=== PATIENT | female | born 2005 | race Caucasian/White ===

== ENCOUNTER 2024-11-28 13:01 | Emergency (ER) | payer OTHER, SELFPAY ==
[2024-11-28] VITALS (10 sets, daily range): BP systolic 109–124; BP diastolic 59–65; PULSE 70–99; RESP 18; TEMP 36.5–36.8; O2SAT 99–100; BMI 18.8
[2024-11-28] MEDS: ONDANSETRON 4 MG/2 ML INJ IV (13:26)
[2024-11-28 13:43] LABS: Amorphous Sediment Urine 1+; Bacteria Urine None Seen; Culture Indicated Urine Cult Not Indicated; RBC Urine 1-5/HPF (0-5/HPF); Squamous Epithelial Cell Urine 1-5 /HPF (0-5/HPF); Urine Volume 10mL (spun); WBC Urine 0-1/HPF (0-5/HPF)
[2024-11-28 13:53] LABS: Add Manual Diff / Slide Review NO; Basophils Absolute Auto 100 /uL (0-100); Basophils Percent Auto 0.5 % (0-2); Eosinophils Absolute Auto 100 /uL (0-450); Eosinophils Percent Auto 0.3 % (2-4); Hematocrit 39.6 % (36-46); Hemoglobin 13.4 g/dL (12.0-16.0); Lymphocytes Absolute Auto 2200 /uL (1100-4500); Lymphocytes Percent Auto 10.2 % (25-40); Mean Corpuscular HGB Conc 33.9 % (30-36); Mean Corpuscular Hemoglobin 28.6 PG (26-34); Mean Corpuscular Volume 84.5 fL (80-100); Monocytes Absolute Auto 1000 /uL (0-900); Monocytes Percent Auto 4.4 % (3-14); Neutrophils Absolute Auto 18500 /uL (1500-7000); Neutrophils Percent Auto 84.6 % (50-75); Platelet Count 387 X10^3/uL (150-400); Red Blood Cell Count 4.68 X10^6/uL (4.0-5.2); Red Cell Distribution Width 13.3 % (11.6-14.8); White Blood Cell Count 21.8 X10^3/uL (4.5-11.0)
[2024-11-28 14:00] LABS: Alanine Aminotransferase 17 IU/L (<35); Albumin 4.6 g/dL (3.5-5.0); Albumin Globulin Ratio 1.7 (1.0-2.8); Alkaline Phosphatase 75 U/L (38-126); Aspartate Aminotransferase 26 IU/L (14-36); BUN Creatinine Ratio 17.3 (6-22); Bilirubin Total 0.4 mg/dL (0.2-1.3); Blood Urea Nitrogen 17 mg/dL (7-17); Calcium 9.8 mg/dL (8.4-10.2); Carbon Dioxide 24 mmol/L (22-32); Chloride 103 mmol/L (98-107); Estimated Glomerular Filt Rate > 60 mL/min (>60); Globulin 2.7 g/dL (1.7-4.1); Glucose 127 mg/dL (70-99); HEMOLYSIS < 15 (0-50); Lipase 69 U/L (23-300); Potassium 3.7 mmol/L (3.4-5.1); Sodium 138 mmol/L (137-145); Total Protein 7.3 g/dL (6.3-8.2)
--- NOTE | 2024-11-28 14:25 | ED_ITS ---
HPI - Abdominal Pain General Chief Complaint: Abdominal Pain Stated Complaint: back+ abd pain, n/v and chills Time Seen by Provider: 11/28/24 14:08 Source: patient and family Mode of arrival: Ambulatory History of Present Illness HPI narrative: Patient here with mom and dad for complaints of nausea vomiting right side pain that started this morning. No known sick contacts. No urinary complaints. No prior abdominal surgical history. Related Data Previous Rx's ?Medication ?Instructions ?Recorded hydrocodone 5 mg-acetaminophen 325 1 tab PO Q6H PRN pa in #20 tabs 11/28/24 mg tablet ibuprofen 600 mg tablet 600 mg PO Q6H PRN fever or p ain 11/28/24 #24 tabs ondansetron 4 mg disintegrating 4 mg PO Q6H PRN nausea and 11/28/24 tablet vomiting #20 tabs tamsulosin 0.4 mg capsule 0.4 mg PO DAILY #7 caps 11/02 02/25 Allergies Allergy/AdvReac Type Severity Reaction Status Date / Time No Known Drug Allergies Allergy Verified 11/28/24 13:04 Review of Systems Review of Systems Narrative: GENERAL: Negative chills, fatigue, malaise, fever, sweats. HEENT: Negative sinus pain, ear pain, sore throat RESPIRATORY: Negative dyspnea, cough CARDIOVASCULAR: Negative chest pain, palpitations GASTROINTESTINAL: Positivevomiting, nausea, abdominal pain : Negative dysuria, frequency, hematuria MUSCULOSKELETAL: Negative muscle or bony pain SKIN: Negative rash, skin lesions NEUROLOGIC: Negative weakness, numbness ROS Unobtainable: All systems reviewed & are unremarkable except as noted in HPI and below Patient History Social History Smoking Status: Never smoker Smoking Status: Never smoker Exam Narrative Exam Narrative: GENERAL: in no distress, not toxic not dyspneic HEAD: Normocephalic. EYES: Pupils equal round ENT: Mucous membranes moist. NECK: Trachea midline. CARDIOVASCULAR: Regular rate and rhythm RESPIRATORY: Clear to auscultation. Breath sounds equal bilaterally. No wheezes, rales, or rhonchi. GASTROINTESTINAL: Abdomen soft, reproducible right lower quadrant tenderness, no guarding or rebound. No peritoneal signs. No pain out of portion exam. Bowel sounds are present. EXTREMITIES: No gross deformities. BACK: No flank tenderness. NEURO: AOx4. Clear speech SKIN: Warm and dry PSYCH: Not anxious, is cooperative Initial Vital Signs Initial Vital Signs: Vital Signs Temperature 97.7 F 11/28/24 13:04 Pulse Rate 70 11/28/24 13:04 Respiratory Rate 18 11/28/24 13:04 Blood Pressure 109/59 L 11/28/24 13:04 Pulse Oximetry 100 11/28/24 13:04 Oxygen Delivery Method Room Air 11/28/24 13:04 Course Orders Ordered: Discontinued Medications Bacitracin (Bacitracin Oint 0.9 Gm Pckt) 1 applic TOP NOW ONE Stop: 11/28/24 15:12 Last Admin: 11/28/24 15:15 Dose: Not Given Documented By: CONNER Hydromorphone HCl (Hydromorphone 1 Mg Inj) 1 mg IV NOW ONE Stop: 11/28/24 15:16 Last Admin: 11/28/24 15:24 Dose: 1 mg Documented By: JAGDEEP Sodium Chloride (Normal Saline 0.9%) 1,000 mls @ 1,000 mls/hr IV BOLUS ONE Stop: 11/28/24 15:23 Last Infusion: 11/28/24 16:12 Dose: Infused Documented By: Admin: 11/28/24 14:35 Dose: 1,000 mls/hr Documented By: JAGDEEP Piperacillin Sod/Tazobactam (Sod 4.5 gm/ Sodium Chloride) 100 mls @ 200 mls/hr IV NOW ONE Stop: 11/28/24 15:19 Last Infusion: 11/28/24 16:12 Dose: Infused Documented By: Admin: 11/28/24 15:25 Dose: 200 mls/hr Documented By: JAGDEEP Ketorolac Tromethamine (Ketorolac 30 Mg/Ml Vial) 15 mg IV NOW ONE Stop: 11/28/24 16:14 Last Admin: 11/28/24 16:22 Dose: 15 mg Documented By: CONNER Morphine Sulfate (Morphine 4 Mg/Ml Inj) 4 mg IV NOW ONE Stop: 11/28/24 14:25 Last Admin: 11/28/24 14:34 Dose: 4 mg Documented By: JAGDEEP Ondansetron HCl (Ondansetron 4 Mg/2 Ml Inj) 4 mg IV NOW PRN PRN Reason: Nausea And Vomiting Last Admin: 11/28/24 13:26 Dose: 4 mg Documented By: RODRIGO Ondansetron HCl (Ondansetron 4 Mg Odt) 4 mg PO NOW PRN PRN Reason: Nausea And Vomiting Prochlorperazine (Prochlorperazine 10 Mg/2 Ml Vial) 5 mg IV NOW ONE Stop: 11/28/24 14:25 Last Admin: 11/28/24 14:35 Dose: 5 mg Documented By: RB Tamsulosin HCl (Tamsulosin 0.4 Mg Capsule) 0.4 mg PO NOW ONE Stop: 11/28/24 16:14 Last Admin: 11/28/24 16:23 Dose: 0.4 mg Documented By: DM Vital Signs Vital signs: Vital Signs - 8 hr 11/28/24 13:04 11/28/24 14:10 11/28/24 14:34 Temperature 97.7 F Pulse Rate 70 94 H Respiratory Rate 18 Blood Pressure 109/59 L 124/65 Pulse Oximetry 100 99 Oxygen Delivery Method Room Air 11/28/24 14:34 11/28/24 14:35 11/28/24 15:05 Temperature Pulse Rate 89 95 H 99 H Respiratory Rate Blood Pressure 124/65 Pulse Oximetry 100 100 Oxygen Delivery Method MDM - Abdominal Pain Lab Data 11/28/24 13:20 11/28/24 13:09 Labs: Lab Results 11/28/24 11/28/24 11/28/24 Range/Units 13:09 13:19 13:20 WBC 21.8 H (4.5-11.0) X10^3/uL RBC 4.68 (4.0-5.2) X10^6/uL Hgb 13.4 (12.0-16.0) g/dL Hct 39.6 (36-46) % MCV 84.5 (80-100) fL MCH 28.6 (26-34) PG MCHC 33.9 (30-36) % RDW 13.3 (11.6-14.8) % Plt Count 387 (150-400) X10^3/uL Neut % (Auto) 84.6 H (50-75) % Lymph % (Auto) 10.2 L (25-40) % Burke % (Auto) 4.4 (3-14) % Eos % (Auto) 0.3 L (2-4) % Baso % (Auto) 0.5 (0-2) % Neut # (Auto) 29198 H (6472-2881) /uL Lymph # (Auto) 2200 (5176-5753) /uL Burke # (Auto) 1000 H (0-900) /uL Eos # (Auto) 100 (0-450) /uL Baso # (Auto) 100 (0-100) /uL Sodium 138 (137-145) mmol/L Potassium 3.7 (3.4-5.1) mmol/L Chloride 103 (98-107) mmol/L Carbon Dioxide 24 (22-32) mmol/L BUN 17 (7-17) mg/dL Creatinine 0.98 (0.52-1.04) mg/dL Estimated GFR > 60 (>60) mL/min BUN/Creatinine Ratio 17.3 (6-22) Glucose 127 H (70-99) mg/dL Calcium 9.8 (8.4-10.2) mg/dL Total Bilirubin 0.4 (0.2-1.3) mg/dL AST 26 (14-36) IU/L ALT 17 (<35) IU/L Alkaline Phosphatase 75 (38-126) U/L Total Protein 7.3 (6.3-8.2) g/dL Albumin 4.6 (3.5-5.0) g/dL Globulin 2.7 (1.7-4.1) g/dL Albumin/Globulin Ratio 1.7 (1.0-2.8) Lipase 69 (23-300) U/L Urine RBC 1-5/hpf (0-5/HPF) Urine WBC 0-1/hpf (0-5/HPF) Ur Squamous Epith Cells 1-5 /hpf (0-5/HPF) Amorphous Sediment 1+ Urine Bacteria None seen (None) Ur Culture Indicated? Cult not indicated Vol Urine Centrifuged 10ml (spun) Point of care testing: Point of Care Testing Test Results Negative Urine Dip Bedside Urine Glucose Negative Bedside Urine Bilirubin - Negative Bedside Urine Ketone - Negative Urine Specific [place] 1.010 Bedside Urine Occult Blood + Bedside Urine pH 7 Bedside Urine Protein +/- 15 Bedside Urine Urobilinogen - Negative Bedside Urine Nitrite - Negative Bedside Urine Leukocytes - Negative Esterase Imaging Data CT scan - abdomen/pelvis: Radiologist's Impression: [address] [address] [address] Scan Report Signed Patient: Sarah Leal MR#: [id number] : 2005 Acct:[id number] Age/Sex: 19 / F Date of Service: 11/28/24 Loc: ED Accession Number: [id number] Procedure: CT abdomen pelvis w con Ordering Provider: Anderson Hyatt MD PROCEDURE: CT ABDOMEN PELVIS W CON INDICATIONS: right side pain TECHNIQUE: After the administration of intravenous contrast, axial sections acquired from the lung bases to the pubic symphysis. Coronal and sagittal reformats were performed. For radiation dose reduction, the following was used: automated exposure control, adjustment of mA and/or kV according to patient size. COMPARISON: None. FINDINGS: Image quality: Diagnostic. Lower Chest: No significant findings. ABDOMEN: Liver: No solid mass. Gallbladder: No radiopaque gallstones or wall thickening. Biliary ducts: No biliary dilation. Pancreas: No ductal dilation. Spleen: Size is within normal limits. Adrenal Glands: No adrenal nodules. Kidneys and Ureters: Delayed enhancement of the right kidney. A 4 mm calculus is seen at the distal right ureter near the ureterovesicular junction with mild right hydroureteronephrosis. Nonobstructing 3 mm calculus is seen at the inferior pole of the right kidney. Multiple 2-4 mm nonobstructing left renal calculi. Left kidney enhances normally. No hydronephrosis. No solid mass. No complex renal cystic lesion which requires follow up. Stomach and Bowel: Normal colonic caliber, without significant wall thickening. Appendix is not well visualized, but no acute inflammatory changes are seen adjacent to the cecal tip. Peritoneum: No abnormal intraperitoneal fluid. No free air. Ventral Wall: No significant ventral hernia. Abdominal Nodes: No retroperitoneal or mesenteric adenopathy by size criteria. Vessels: Aorta and inferior vena cava are normal in size. PELVIS: Pelvic Organs: Anteverted uterus. 2.3 cm left ovarian cyst is likely physiologic. Trace pelvic free fluid is also likely physiologic. Bladder: No bladder wall thickening, accounting for underdistention. Pelvic Nodes: No enlarged lymph nodes. Miscellaneous: No inguinal hernias are seen. Bones: No aggressive osseous abnormality. IMPRESSION: 1. Right distal ureteral 4 mm calculus with mild right hydroureteronephrosis and delayed enhancement of the right kidney. 2. Additional bilateral small nonobstructing renal calculi. Approved by: Edinson Greenberg M.D. on 11/28/2024 at 15:03 [facility] Narrative Medical decision making narrative: Patient here with mom and dad for complaints of nausea vomiting right side pain that started this morning. No known sick contacts. No urinary complaints. No prior abdominal surgical history. After history and exam, CBC CMP urinalysis test Zofran morphine Compazine normal saline CT abdomen pelvis test [facility] Medical records reviewed: No recent visit for this complaint Differential considered: Includes but not limited to appendicitis UTI kidney stone cystitis pyelonephritis cholecystitis cholelithiasis Lab Test results independently reviewed as above. Pertinent findings: Negative , WBC 21.8, BUN 17 creatinine 0.98 Imaging studies independently reviewed: CT abdomen pelvis right distal ureteral 4 mm stone Consultations: None indicated at this time Re-evaluations: 4:32 p.m.. Updated patient and parents results. Kidney stone is the source of her pain and vomiting. It is small enough to pass. Urology referral will be provided. Return precautions reviewed. Pain is controlled. They desire discharge home. Discussion: Appropriate for discharge home. Exam is reassuring. Pain is controlled. Return precautions reviewed with patient and family. They desire discharge home. Diagnosis: Ureteral Stone Discharge Plan Departure Patient Disposition: Home Clinical Impression: Right distal ureteral calculus Instructions: DI for Kidney Stones Activity Restrictions/Additional Instructions: Your exam and laboratory results show that you are passing a kidney stone in the right side. It is small enough, 4 mm, to pass. No driving operating machinery today or when taking prescribed pain medication. Please call provided urology office tomorrow for follow up in a week for re-evaluation. Return if worse if any questions or concerns. Prescriptions: New hydrocodone-acetaminophen 5-325 mg tablet 1 tab PO Q6H PRN (Reason: pain) Qty: 20 0RF tamsulosin 0.4 mg capsule 0.4 mg PO DAILY Qty: 7 0RF ibuprofen 600 mg tablet 600 mg PO Q6H PRN (Reason: fever or pain) Qty: 24 0RF ondansetron 4 mg tablet,disintegrating 4 mg PO Q6H PRN (Reason: nausea and vomiting) Qty: 20 0RF Referrals: Anderson Quintero MD [Physician, Urology] Stand Alone Forms: Patient Portal/API/Survey, Work Release Note
[2024-11-28] MEDS: MORPHINE 4 MG/ML INJ IV (14:34)
[2024-11-28] MEDS: SODIUM CHLORIDE 0.9% 1,000 ML 1000 ML IV (14:35)
[2024-11-28] MEDS: PROCHLORPERAZINE 10 MG/2 ML VIAL 5 MG IV (14:35)
[2024-11-28] MEDS: HYDROMORPHONE 1 MG INJ IV (15:24)
[2024-11-28] MEDS: PIPERACILLIN/TAZO 4.5 GM in SODIUM CHLORIDE 0.9% 100 ML IV (15:25)
[2024-11-28] MEDS: KETOROLAC 30 MG/ML VIAL 15 MG IV (16:22)
[2024-11-28] MEDS: TAMSULOSIN 0.4 MG CAPSULE PO (16:23)
== END 2024-11-28 16:58 | disposition home or self-care (01) ==
PROVIDERS: Emergency Provider Emergency Medicine
DX: N13.2 Hydronephrosis with renal and ureteral calculous obstruction (principal)
CPT/HCPCS: 36415; 74177; 80053; 81003; 81015; 81025; 83690; 85025; 96361; 96365; 96375; 99284; J0780; J1171; J1885; J2270; J2405; J2543; Q9967